=== PATIENT | female | born 1995 | race Two or more races ===

== ENCOUNTER 2016-06-10 08:57 | Emergency (ER) | payer OTHER ==
[2016-06-10] MEDS ORDERED: NS 0.9% 1000 ML* 1,000 ML IV ONE (09:19)
--- NOTE | 2016-06-10 09:25 | ED ---
Syncope/Near Syncope - HPI Summary HPI Summary: 20yo female presents with near syncope this am at 8a. While she was standing at the [employer] at work, she had sensation of ringing in her ears, blurred vision, and she felt as though she was going to faint. Denies actual syncope. She stated that the symptoms lasted for 30 seconds and spontaneously resolved. She did not eat breakfast this am. Denies current symptoms. Denies headache, nausea or vomiting. Denies fever/chills. No chest pain, shortness of breath or palpitations. Denies pleuritic chest painShe is not on any OCP or taking estrogen. LMP was this week. She denies any recent trip/travel or surgeries. She denies h/o clotting d/o or DVT. She denies family h/o clotting d/o. - History Of Current Complaint Chief Complaint: EDSyncope Time Seen by Provider: 06/10/16 09:14 - Allergies/Home Medications Allergies/Adverse Reactions: Allergies Allergy/AdvReac Type Severity Reaction Status Date / Time Ibuprofen Allergy Hives Verified 06/10/16 09:06 PMH/Surg Hx/FS Hx/Imm Hx Previously Healthy: Yes Endocrine/Hematology History: Denies: Hx Diabetes Cardiovascular History: Denies: Hx Hypertension History: Denies: Hx Renal Disease Infectious Disease History: No Infectious Disease History: Denies: Traveled Outside the [place] in Last 30 Days - Family History Known Family History: Positive: Other - mother with arthritis, siblings with asthma - Social History Occupation: Employed Full-time Lives: With Family Alcohol Use: Occasionally Substance Use Type: Reports: None Hx Tobacco Use: Yes Smoking Status (MU): Current Some Day Smoker Type: Cigarettes Have You Smoked in the Last Year: Yes Review of Systems Neurological: Other - near syncope All Other Systems Reviewed And Are Negative: Yes Physical Exam - Summary Physical Exam Summary: GENERAL: Well appearing, No acute distress, well nourished. HEENT: Head atraumatic/normocephalic, EOMI/EDUARDO, conjunctiva clear, TMs appear without erythema/bulging, Nose appears without congestion or drainage, Throat uvula midline without exudates, erythema, or tonsillar edema. NECK: Supple with normal range of motion during conversation. CARDIAC: RRR without murmur, rub or gallop LUNGS: Clear to auscultation without wheezing, rales or rhonchi. Normal respiratory effort. Breath sounds are symmetrical and equal. ABDOMEN: Abdomen is soft and non-tender. MUSCULOSKELETAL: Moves all extremities well. There is no peripheral edema. neg homans bilaterally. SKIN: Warm and dry, skin color reflects adequate perfusion. NEUROLOGICAL: Patient is alert and appropriate. Cranial nerves are grossly intact. PSYCHIATRIC: Appropriate affect. Vital Signs On Initial Exam: Initial Vitals Temp Pulse Resp BP Pulse Ox 97.4 F 57 16 91/52 100 06/10/16 09:03 06/10/16 09:03 06/10/16 09:03 06/10/16 09:03 06/10/16 09:03 Diagnostics - Vital Signs Vital Signs Temp Pulse Resp BP Pulse Ox 06/10/16 09:03 97.4 F 57 16 91/52 100 - Laboratory Result Diagrams: 06/10/16 09:55 06/10/16 09:55 Lab Statement: Any lab studies that have been ordered have been reviewed, and results considered in the medical decision making process. - EKG 1 Cardiac Rate: Bradycardia EKG Rhythm: Sinus Rhythm ST Segment: Non-Specific Ectopy: None EKG Interpretation: No acute pattern, seen by Dr. Dhillon Re-Evaluation - Re-Evaluation First Eval Change: Unchanged Second Eval Change: Unchanged - Patient is without presyncopal symptoms. She states that she feels well overall, but does feel tired. She took and retained a sandwich. Still pending UA for dispo. Third Eval Change: Unchanged - Patient states that she continues to feel fine. Orthostatics show slight increase in pulse with standing, but consistent bp. Bp is in the 90s systolic but is consistent and without symptoms. Discussed abnormal UA, however patient continues to state that she does not have any UTI symptoms. Course/Dx Assessment/Plan: 20yo female presents with near syncope after standing at work and not eating breakfast. No syncope. Denies chest pain, palpitations, shortness of breath. She is PERC negative. She denies any symptoms at this time, and believes that her symptoms could be due to the fact that she did not eat this am. She typically does not skip meals, and stated that she is very busy at work and did not have time to eat. Her blood work is unremarkable. Patient with some abnormal findings on UA, however patient denies any uti or vaginal symptoms. EKG was seen and reviewed by the attending which showed a bradycardia. Patient is comfortable with going home to her boyfriend's house. Patient did not have any questions and is comfortable with plan of care. Advised that she f/u with a PCP in the next 1-2 days for further evaluation. She understands that she should return with any problems, concerns or new/ worsening symptoms. Advised frequent meals. - Diagnoses Provider Diagnoses: Near syncope - Physician Notifications Discussed Care Of Patient With: Dr. Dhillon Discharge - Discharge Plan Condition: Good Disposition: HOME Patient Education Materials: Near Syncope (ED) Referrals: [facility] [Outside] - 2 Days No Primary Care Phys,NOPCP [Primary Care Provider] - Additional Instructions: As discussed, some of the things that can cause your symptoms include low blood sugar (from missing a meal), irregular heart beat, or changes in your electrolytes. As discussed, your urine shows some signs of possible infection however you do not have any symptoms of a UTI. Your urine will be cultured to see if you need treatment. Please follow up with a PCP. Return here with any problems, concerns or new/worsening symptoms.
[2016-06-10 10:08] LABS: Hematocrit 42 % (35-47); Mean Corpuscular HGB Conc 34 g/dl (31-36); Mean Corpuscular Hemoglobin 31 pg (27-31); Mean Corpuscular Volume 92 fL (80-97); Mean Platelet Volume 11 um3 (7.4-10.4); Red Blood Count 4.52 10^6/ul (4.0-5.4); Red Cell Distribution Width 13 % (10.5-15); White Blood Count 8.5 10^3/ul (3.5-10.8)
[2016-06-10 10:10] LABS: Comments Flag Yes
[2016-06-10 10:11] LABS: Add Diff/Slide Review? Slide Review Added
[2016-06-10 10:30] LABS: ALT 26 U/L (7-52); AST 24 U/L (13-39); Albumin 4.6 g/dL (3.2-5.2); Alkaline Phosphatase 67 U/L (34-104); Anion Gap 5 mmol/L (2-11); BUN/Creatinine Ratio 10.4 (8-20); Blood Urea Nitrogen 8 mg/dL (6-24); CO2 Carbon Dioxide 27 mmol/L (22-32); Calcium 9.5 mg/dL (8.6-10.3); Chloride 103 mmol/L (101-111); EGFR African American 121.7 (>60); EGFR Non-African American 94.6 (>60); Globulin 2.7 g/dL (2-4); Glucose 81 mg/dL (70-100); Potassium 3.5 mmol/L (3.5-5.0); Sodium 135 mmol/L (133-145); Total Protein 7.3 g/dL (6.4-8.9); Troponin I 0.01 ng/mL (<0.04)
[2016-06-10 10:54] LABS: TSH (Thyroid Stimulating Horm) 0.95 mcIU/mL (0.34-5.60)
[2016-06-10 13:27] LABS: Urine Bacteria 1+ (Absent); Urine Bilirubin Negative (Negative); Urine Glucose Negative (Negative); Urine Nitrite Negative (Negative)
[2016-06-10 14:14] VITALS: BP 100/56
== END 2016-06-10 14:14 | disposition home or self-care (01) ==
LOC: ED 08:57
DX: R55 Syncope and collapse (principal); R00.1 Bradycardia, unspecified; Z72.0 Tobacco use; H53.8 Other visual disturbances; Z88.6 Allergy status to analgesic agent
CPT/HCPCS: 36415; 80053; 81003; 81015; 84443; 84484; 84702; 85025; 87086; 93005; 99283

== ENCOUNTER 2016-11-03 10:21 | Emergency (ER) | payer OTHER ==
[2016-11-03 10:33] VITALS: BP 119/79
[2016-11-03] MEDS ORDERED: Ketorolac INJ* 60 MG/2 ML VIAL IM ONE (11:07)
[2016-11-03] MEDS ORDERED: Amoxicillin CAP* 250 MG PO ONE (11:08)
--- NOTE | 2016-11-03 11:10 | ED ---
Throat Pain/Nasal Congestion - HPI Summary HPI Summary: 21 female presents with complaints of lower left dental pain that began 2 days ago. Patient states she has tried aleve which helps for a short period of time and Ambisil topical without relief. Patient states the pain is sharp and aching. Admits to some welling of left cheek. Admits to headache from the pain. Denies difficulty swallowing and breathing. Has had trouble eating and drinking. DeniesNo PMHx fever/chills, cough and any other symptoms at this time. No discharge. No PMHx. Has a dentist appointment next week to have tooth removed. - History of Current Complaint Chief Complaint: EDDentalPain Time Seen by Provider: 11/03/16 10:37 Hx Obtained From: Patient Onset/Duration: Sudden Onset, Lasting Days - 2 Severity: Moderate Cough: None - Epiglottits Risk Factors Epiglottis Risk Factors: Negative - Allergies/Home Medications Allergies/Adverse Reactions: Allergies Allergy/AdvReac Type Severity Reaction Status Date / Time Ibuprofen Allergy Hives Verified 06/10/16 09:06 PMH/Surg Hx/FS Hx/Imm Hx Endocrine/Hematology History: Denies: Hx Diabetes Cardiovascular History: Denies: Hx Hypertension Respiratory History: Denies: Hx Asthma History: Denies: Hx Renal Disease - Surgical History Surgery Procedure, Year, and Place: n/a - Immunization History Immunizations Up to Date: Yes Infectious Disease History: No Infectious Disease History: Denies: Traveled Outside the [place] in Last 30 Days - Family History Known Family History: Positive: Unknown, Other - mother with arthritis, siblings with asthma - Social History Alcohol Use: Occasionally Substance Use Type: Reports: None Hx Tobacco Use: Yes Smoking Status (MU): Current Some Day Smoker Type: Cigarettes Have You Smoked in the Last Year: Yes Review of Systems Constitutional: Negative Positive: Dental Pain Cardiovascular: Negative Respiratory: Negative Gastrointestinal: Negative Skin: Negative Positive: Headache All Other Systems Reviewed And Are Negative: Yes Physical Exam Triage Information Reviewed: Yes Vital Signs On Initial Exam: Initial Vitals Temp Pulse Resp Pulse Ox 98.3 F 62 20 100 11/03/16 10:31 11/03/16 10:31 11/03/16 10:31 11/03/16 10:31 BP: 119/79 Vital Signs Reviewed: Yes Appearance: Positive: Well-Appearing, No Pain Distress, Well-Nourished Skin: Positive: Warm, Skin Color Reflects Adequate Perfusion, Dry, Other - some edema of left cheek noted. no palpable abscess however patient was exquisetly tender. no parotid edema. no discharge or sign of visual abscess Head/Face: Positive: Normal Head/Face Inspection Eyes: Positive: Normal, EOMI, KATERYNA, Conjunctiva Clear ENT: Positive: Normal ENT inspection, Hearing grossly normal, Pharynx normal, TMs normal, Dental tenderness - left lower molar, Other - patent airway and no sign of dental abscess. Negative: Pharyngeal erythema, Nasal congestion, Nasal drainage, Tonsillar swelling, Tonsillar exudate, Trismus, Muffled/hoarse voice Dental: Positive: Gross Decay/Caries @. Negative: Dental Fracture @, Abscess @ , Cervical Lymphadenopathy Neck: Positive: Supple, Nontender, No Lymphadenopathy Respiratory/Lung Sounds: Positive: Clear to Auscultation, Breath Sounds Present. Negative: Rales, Rhonchi, Wheezes Cardiovascular: Positive: Normal, RRR, Pulses are Symmetrical in both Upper and Lower Extremities. Negative: Murmur, Rub Musculoskeletal: Positive: Normal, Strength/ROM Intact Neurological: Positive: Normal, Sensory/Motor Intact, Alert, Oriented to Person Place, Time Psychiatric: Positive: Normal AVPU Assessment: Alert Diagnostics - Vital Signs Vital Signs Temp Pulse Resp BP Pulse Ox 11/03/16 10:32 98.9 F 69 20 119/79 100 11/03/16 10:31 98.3 F 62 20 100 - Laboratory Lab Statement: Any lab studies that have been ordered have been reviewed, and results considered in the medical decision making process. EENT Course/Dx - Course Course Of Treatment: Given toradol while in office and first dose of antibiotic. continue pain management and antibiotic along with topical agent and ice pack until dentist appointment. Aware of worsening signs and symptoms to watch out for. IStop Reference #: [id number] - Differential Diagnoses Differential Diagnoses: Dental Abscess, Dental Caries, Periodontic Abscess - Diagnoses Provider Diagnoses: Pain, dental, Dental infection Discharge - Discharge Plan Condition: Stable Disposition: HOME Prescriptions: Amoxicillin CAP* [Amoxicillin 500 MG CAP*] 500 mg PO Q12H #19 cap HYDROcodone/ACETAMIN 5-325 MG* [[place] 5-325 TAB*] 1 tab PO Q6H PRN #10 tab MDD 2 PRN Reason: Pain Patient Education Materials: Toothache (ED) Referrals: No Primary Care Phys,NOPCP [Primary Care Provider] - [facility] [place]] Additional Instructions: Take prescribed antibiotic until entire dose is finished for infection. Take prescribed pain medication once daily and Aleve in between doses. Do not drive while taking this medication. Use topical numbing agents. Swish with salt water multiple times daily. Continue applying ice to help with swelling and discomfort. Try and make a sooner appointment with your dentist. If symptoms worsen or do not improve please seek medical attention.
== END 2016-11-03 12:34 | disposition home or self-care (01) ==
LOC: ED 10:21
DX: K08.89 Other specified disorders of teeth and supporting structures (principal); K04.7 Periapical abscess without sinus; R51 Headache; Z72.0 Tobacco use
CPT/HCPCS: 96372; 99282; A9270-GY; J1885

== ENCOUNTER 2016-11-04 21:18 | Emergency (ER) | payer OTHER ==
[2016-11-04] MEDS ORDERED: HYDROcodone/ACETAMIN 5-325 MG* 1 TAB PO ONE (22:34)
[2016-11-04] MEDS ORDERED: Clindamycin CAP* 150 MG PO ONE (22:34)
[2016-11-04] MEDS ORDERED: Morphine INJ* 4 MG/ML 1 ML SYRINGE IV ONE (22:45)
--- NOTE | 2016-11-04 22:45 | ED ---
Throat Pain/Nasal Congestion - HPI Summary HPI Summary: Patient arrives to ED with CC of pain and swelling over left side of cheek radiating to the jaw and ear. Endorses trismus, drooling and dysphagia. Pain is 10/10, sharp and throbbing. Denies airway compromise or SOB. Denies ear pain, eye pain, blurry vision or double vision. Otherwise healthy. Pain is worse with chewing and cold drinks, better with ibuprofen, but only improves slightly. Patient denies dental care for several years. She was given amoxicillin and hydrocodone yesterday for the infection, but notes now is getting worse. Grandmother is at bedside. - History of Current Complaint Chief Complaint: EDDentalPain Time Seen by Provider: 11/04/16 21:40 Hx Obtained From: Patient Onset/Duration: Sudden Onset Severity: Severe Associated Signs And Symptoms: Positive: Negative - Epiglottits Risk Factors Epiglottis Risk Factors: Negative - Allergies/Home Medications Allergies/Adverse Reactions: Allergies Allergy/AdvReac Type Severity Reaction Status Date / Time Ibuprofen Allergy Hives Verified 06/10/16 09:06 PMH/Surg Hx/FS Hx/Imm Hx Previously Healthy: Yes Endocrine/Hematology History: Denies: Hx Diabetes Cardiovascular History: Denies: Hx Hypertension Respiratory History: Denies: Hx Asthma History: Denies: Hx Renal Disease - Surgical History Surgery Procedure, Year, and Place: n/a - Immunization History Hx Pertussis Vaccination: No Immunizations Up to Date: Unable to Obtain/Confirm Infectious Disease History: No Infectious Disease History: Denies: Traveled Outside the [place] in Last 30 Days - Family History Known Family History: Positive: Unknown, Other - mother with arthritis, siblings with asthma - Social History Occupation: Unemployed Lives: With Family Alcohol Use: Occasionally Hx Substance Use: Yes Substance Use Type: Reports: Marijuana Hx Tobacco Use: Yes Smoking Status (MU): Light Every Day Tobacco Smoker Type: Cigarettes Have You Smoked in the Last Year: Yes Review of Systems Constitutional: Negative Eyes: Negative Positive: Dental Pain Cardiovascular: Negative Respiratory: Negative Positive: no symptoms reported, see HPI Musculoskeletal: Negative Skin: Negative Neurological: Negative All Other Systems Reviewed And Are Negative: Yes Physical Exam Triage Information Reviewed: Yes Vital Signs On Initial Exam: Initial Vitals Temp Pulse Resp BP Pulse Ox 99.5 F 78 18 125/70 99 11/04/16 21:21 11/04/16 21:21 11/04/16 21:21 11/04/16 21:21 11/04/16 21:21 Vital Signs Reviewed: Yes Appearance: Positive: Well-Appearing, Well-Nourished Skin: Positive: Warm, Skin Color Reflects Adequate Perfusion Eyes: Positive: EOMI, KATERYNA, Conjunctiva Clear ENT: Positive: Trismus, Dental tenderness Dental: Positive: Percussion Tenderness @, Abscess @ - left side/ cannot identify location d/t pain and trimus Neck: Positive: Supple, No Lymphadenopathy Respiratory/Lung Sounds: Positive: Clear to Auscultation, Breath Sounds Present Cardiovascular: Positive: Normal, RRR, Pulses are Symmetrical in both Upper and Lower Extremities Musculoskeletal: Positive: Normal, Strength/ROM Intact Psychiatric: Positive: Normal - [place] Coma Scale Coma Scale Total: 15 Diagnostics - Vital Signs Vital Signs Temp Pulse Resp BP Pulse Ox 11/04/16 21:41 99.5 F 78 18 125/70 99 11/04/16 21:21 99.5 F 78 18 125/70 99 - Laboratory Result Diagrams: 11/04/16 23:00 11/04/16 23:00 Lab Statement: Any lab studies that have been ordered have been reviewed, and results considered in the medical decision making process. EENT Course/Dx - Course Course Of Treatment: Patient sent to CT maxillofacial. Labs drawn. Morphine 4mg given for 10/10 pain. She has taken amoxicillin 1 day without relief of symptoms. CT maxillofacial with contrast showing soft tissue absess, overylying left mandibular soft tissue cellulitis and left submandibular lymphadenopathy. Clindamycin 600mg given in ED. Clindamycin and norco given rx. Patient made aware of plan and is OK with discharge. Patient will follow up with PCP and return if symptoms become worse. Return precautions given, medications and side effects reviewed. - Differential Diagnoses Differential Diagnoses: Dental Abscess, Dental Caries - Diagnoses Provider Diagnoses: Abscess, dental Discharge - Discharge Plan Condition: Stable Disposition: HOME Prescriptions: Clindamycin Cap(NF) [Cleocin 300 mg Cap(NF)] 300 mg PO Q6H #28 cap HYDROcodone/ACETAMIN 5-325 MG* [[place] 5-325 TAB*] 1 tab PO Q4H PRN #18 tab MDD 6 PRN Reason: Pain Patient Education Materials: Dental Abscess (ED) Referrals: No Primary Care Phys,NOPCP [Primary Care Provider] - Jessa,Kavin, MD [Medical Doctor] - Additional Instructions: You have been diagnosed with dental pain with possible infection: Antibiotics as prescribed to you. Clindamycin 4 times daily x 7 days. [place] every 4 hours as needed for pain. You may take 2 every 6 hours if you feel every 4 hours is not improving your symptoms. Salt water rinses several times per day will improve healing time. Ibuprofen 600mg three times daily with meals for discomfort. Follow up with a dentist for routine care to prevent recurrence of infections. If fever, worsening pain or swelling develops, see your PCP, dentist or come back to the Emergency Department.
[2016-11-04 23:27] LABS: Hematocrit 37 % (35-47); Hemoglobin 12.3 g/dl (12.0-16.0); Mean Corpuscular HGB Conc 33 g/dl (31-36); Mean Corpuscular Hemoglobin 30 pg (27-31); Mean Corpuscular Volume 91 fL (80-97); Mean Platelet Volume 12 um3 (7.4-10.4); Red Blood Count 4.08 10^6/ul (4.0-5.4); Red Cell Distribution Width 13 % (10.5-15); White Blood Count 15.3 10^3/ul (3.5-10.8)
[2016-11-04 23:39] LABS: Albumin 4.4 g/dL (3.2-5.2); BUN/Creatinine Ratio 6.3 (8-20); Calcium 9.5 mg/dL (8.6-10.3); EGFR African American 149.2 (>60); Globulin 2.9 g/dL (2-4); Potassium 3.5 mmol/L (3.5-5.0); Total Bilirubin 0.7 mg/dL (0.2-1.0); Total Protein 7.3 g/dL (6.4-8.9)
[2016-11-05] MEDS ORDERED: Iohexol 300* (CONTRAST) 10 ML SDV IV ONE (00:11)
[2016-11-05] MEDS ORDERED: Morphine INJ* 2 MG/ML 1 ML SYRINGE IV ONE (00:11)
[2016-11-05] MEDS ORDERED: HYDROcodone/ACETAMIN 5-325 MG* 1 TAB PO ONE (01:36)
[2016-11-05] MEDS ORDERED: Clindamycin CAP* 150 MG PO ONE (01:36)
[2016-11-05 02:05] VITALS: BP 110/79
--- NOTE | 2016-11-05 08:26 | RAD ---
indication: Facial swelling and dental abscess. COMPARISON: None A CT scan of the maxillofacial bones was performed after the injection of 50 mL Omnipaque 300. Contiguous axial sections were obtained from the level of the hyoid bone to just above the frontal sinuses. Findings: Involving the left first and second molars there are periapical lucencies. Along the buccal margin of the left mandible adjacent to the periapical lucency there is destruction of the cortex (image 19 of 67). Adjacent to this cortical defect is a small abscess measuring 0.4 x 1.2 cm in the axial plane (image 10 and 1 cm in the cephalocaudal projection (coronal image 31). There is overlying phlegmonous change in induration of the subcutaneous tissue. Also incidentally noted are dental caries involving the upper posterior molars. Paranasal Sinuses: The paranasal sinuses are clear. Visualized brain: The limited views of the brain do not demonstrate any acute abnormality or extra-axial hemorrhage. IMPRESSION: CT findings are consistent with left first and second molar periapical abscess with destruction of the overlying buccal surface mandible and a 0.4 x 1.2 x 1.0 dental abscess between the mandible and overlying soft tissues.
== END 2016-11-05 02:00 | disposition home or self-care (01) ==
LOC: ED 21:18
DX: K04.7 Periapical abscess without sinus (principal); Z88.6 Allergy status to analgesic agent; F12.90 Cannabis use, unspecified, uncomplicated; F17.210 Nicotine dependence, cigarettes, uncomplicated
CPT/HCPCS: 36415; 70487; 80053; 85025; 96374; 96376; 99283; A9270-GY; J2270; Q9967

== ENCOUNTER 2018-09-23 15:55 | Emergency (ER) | payer SELFPAY ==
[2018-09-23] MEDS ORDERED: Ondansetron INJ* 2 MG/ML VIAL IV ONE (16:20)
[2018-09-23] MEDS ORDERED: NS 0.9% 1000 ML** 1,000 ML IV ONE (16:20)
--- NOTE | 2018-09-23 16:20 | ED ---
GI/ HPI - HPI Summary HPI Summary: This patient is a 23 year old female presenting to [facility] with a chief complaint of nausea and vomiting for the last 4 days. She states there may have been blood on her vomit. The patient reports epigastric pain. The patient states she has been unable to eat. The patient rates her abdominal pain 8/10 in severity. Patient has a febrile temperature of 101 F in the room. - History of Current Complaint Chief Complaint: EDNauseaVomitDiarrh Time Seen by Provider: 09/23/18 16:13 Stated Complaint: ABD PAIN, VOMITING PER EMS Hx Obtained From: Patient Onset/Duration: Started Days Ago Timing: Constant, Lasting Days Severity: Moderate Current Severity: Moderate Pain Intensity: 8 Location of Pain: Epigastric Associated Signs and Symptoms: Positive: Hematemesis, Nausea, Vomiting - Allergy/Home Medications Allergies/Adverse Reactions: Allergies Allergy/AdvReac Type Severity Reaction Status Date / Time ibuprofen Allergy Hives Verified 09/23/18 16:05 PMH/Surg Hx/FS Hx/Imm Hx Endocrine/Hematology History: Denies: Hx Diabetes Cardiovascular History: Denies: Hx Hypertension Respiratory History: Denies: Hx Asthma History: Denies: Hx Dialysis, Hx Renal Disease - Surgical History Surgery Procedure, Year, and Place: n/a Infectious Disease History: No Infectious Disease History: Denies: Traveled Outside the [place] in Last 30 Days - Family History Known Family History: Positive: Other - mother with arthritis, siblings with asthma - Social History Alcohol Use: Occasionally Hx Substance Use: Yes Substance Use Type: Reports: Marijuana Hx Tobacco Use: Yes Smoking Status (MU): Light Every Day Tobacco Smoker Type: Cigarettes Have You Smoked in the Last Year: Yes Review of Systems Positive: Fever Positive: Abdominal Pain, Vomiting, Nausea - Hematemesis All Other Systems Reviewed And Are Negative: Yes Physical Exam - Summary Physical Exam Summary: VITAL SIGNS: Reviewed. GENERAL: Patient is a well-developed and nourished female who is lying comfortable in the stretcher. Patient is not in any acute respiratory distress. HEAD AND FACE: Normocephalic and atraumatic. EYES: PERRLA, EOMI x 2, No injected conjunctiva. EARS: Hearing grossly intact. Ear canals and tympanic membranes are WNL. MOUTH: Oropharynx within normal limits. NECK: Supple, trachea is midline, no adenopathy, no JVD. CHEST: Symmetric, no tenderness at palpation LUNGS: Clear to auscultation bilaterally. No wheezing or crackles. CVS: RRR, S1 and S2 present, no murmurs or gallops appreciated. ABDOMEN: Soft, epigastric tenderness. No signs of distention. Positive bowel sounds. No rebound no guarding, and no masses palpated. No abdominal bruit or pulsations. EXTREMITIES: FROM in all major joints, no edema, no cyanosis or clubbing. NEURO: Alert and oriented x 3. No acute neurological deficits. Speech is normal. SKIN: Dry and warm Triage Information Reviewed: Yes Vital Signs On Initial Exam: Initial Vitals Temp Pulse Resp BP Pulse Ox 101 F 70 20 106/68 98 09/23/18 15:58 09/23/18 15:58 09/23/18 15:58 09/23/18 15:58 09/23/18 15:58 Vital Signs Reviewed: Yes Diagnostics - Vital Signs Vital Signs Temp Pulse Resp BP Pulse Ox 09/23/18 15:58 101 F 70 20 106/68 98 - Laboratory Result Diagrams: 09/23/18 17:07 09/23/18 17:07 Lab Statement: Any lab studies that have been ordered have been reviewed, and results considered in the medical decision making process. - Radiology CXR Radiology Interpretation Completed By: Radiologist Summary of Radiographic Findings: No radiographic evidence for acute cardiopulmonary disease. ED Provider has reviewed this report. Re-Evaluation - Re-Evaluation First Eval Re-Evaluation Time: 17:45 Change: Improved Comment: Discussed results and plan for discharge with patient. Patient states she feels less naseous. GIGU Course/Dx - Course Assessment/Plan: This patient is a 23-year-old female who presents to the emergency department with a chief complaint of nausea and vomiting for the last 3 days. The patient denies any abdominal pain, denies any chest pain, denies any cough, denies any arrhythmia constipation. Patient has no other complaints. Last menstrual cycle it was within one week ago. We obtained an IV accesses, the patient was given IV fluids and she was given Zofran for nausea and vomiting. Blood work was ordered. Test results without any significant abnormality except for CRP of 13.5. Beta hCG is negative. Influenza A is positive. After these medications were given the patients symptoms have significantly improved and she feels better. The patient is able to tolerate by mouth. Therefore the patient will be discharged home with follow -up with primary care physician. The patient is already more than 3 days with the symptoms therefore she would not benefit for Tamiflu. However, she will be given a prescription for Zofran. The patient is hemodynamically stable alert and oriented 3. I discussed all the findings and test results with the patient. Patient was instructed to return to the emergency room immediately if any of the symptoms return worsens. Plan of care was discussed with the patient and understands and agrees. All questions were answered at patient satisfaction. There were no further complaints or concerns. Lung exam before discharge: CTA B/L. Good air exchange. No wheezing or crackles heard. CVS: S1 and S2 present. No murmurs appreciated. Patient is alert and oriented x 3. Patient is hemodynamically stable. Patient will be discharged home with follow up PCP in the next 2-3 days - Diagnoses Provider Diagnoses: Influenza A, Nausea and vomiting Discharge - Sign-Out/Discharge Documenting (check all that apply): Patient Departure - Discharge Patient Received Moderate/Deep Sedation with Procedure: No - Discharge Plan Condition: Stable Disposition: HOME Prescriptions: Ondansetron TAB* [Zofran 4 MG Tab*] 4 mg PO Q6H PRN #10 tab PRN Reason: Nausea Patient Education Materials: Influenza (ED), Acute Nausea and Vomiting (ED) Referrals: [facility]ERR[facility] [Outside] Additional Instructions: Return to ED with any new or worsening symptoms. - Billing Disposition and Condition Condition: STABLE Disposition: Home - Attestation Statements Document Initiated by Imer: Yes Documenting Scribe: Dhruv Diggs Provider For Whom Imer is Documenting (Include Credential): Massimo Lainez MD Scribe Attestation: Dhruv Collins, scribed for Massimo Lainez MD on 09/23/18 at 2106. Scribe Documentation Reviewed: Yes Provider Attestation: The documentation as recorded by the Dhruv miramontes accurately reflects the service I personally performed and the decisions made by , Massimo Lainez MD Status of Scribe Document: Viewed
[2018-09-23 17:01] LABS: Influenza A Molecular POSITIVE (Negative)
[2018-09-23 17:30] LABS: ABS Lymphocytes 1.2 10^3/ul (1.0-4.8); ABS Monocytes 0.7 10^3/ul (0-0.8); ABS Neutrophils 5.1 10^3/ul (1.5-7.7); Eosinophil % 0.3 %; Hematocrit 41 % (35-47); Hemoglobin 13.7 g/dL (12.0-16.0); Lymphocyte % 17.7 %; Mean Corpuscular HGB Conc 34 g/dL (31-36); Mean Corpuscular Hemoglobin 31 pg (27-31); Mean Corpuscular Volume 92 fL (80-97); Mean Platelet Volume 10.7 fL (7.4-10.4); Nucleated Red Blood Cells % 0.1; Platelet Count 179 10^3/uL (150-450); Red Blood Count 4.43 10^6 /uL (3.70-4.87); Red Cell Distribution Width 13 % (10.5-15)
[2018-09-23 17:45] LABS: ALT 23 U/L (7-52); AST 25 U/L (13-39); Albumin 4.6 g/dL (3.2-5.2); Albumin/Globulin Ratio 1.8 (1-3); Alkaline Phosphatase 57 U/L (34-104); Anion Gap 8 mmol/L (2-11); Blood Urea Nitrogen 9 mg/dL (6-24); C Reactive Protein 13.55 mg/L (<8.01); CO2 Carbon Dioxide 24 mmol/L (22-32); Calcium 9.5 mg/dL (8.6-10.3); Chloride 104 mmol/L (101-111); EGFR African American 103.6 (>60); EGFR Non-African American 85.6 (>60); Globulin 2.6 g/dL (2-4); Glucose 90 mg/dL (70-100); Potassium 3.7 mmol/L (3.5-5.0); Sodium 136 mmol/L (135-145); Total Protein 7.2 g/dL (6.4-8.9)
[2018-09-23 17:51] LABS: HCG Pregnancy < 0.60 mIU/mL
[2018-09-23 18:39] VITALS: BP 103/74
== END 2018-09-23 18:37 | disposition home or self-care (01) ==
LOC: ED 15:55
DX: J09.X2 Influenza due to identified novel influenza A virus with other respiratory manifestations (principal); R11.2 Nausea with vomiting, unspecified
CPT/HCPCS: 36415; 71046; 80053; 83605; 83690; 84702; 85025; 86140; 87040; 96361; 96374; 99282; J2405